=== PATIENT | female | born 1965 | race Caucasian/White ===

== ENCOUNTER 2020-02-13 20:54 | Emergency (ER) | payer MEDICARE, OTHER ==
[~2020-02-13] VITALS: Ht 152.4 cm; Wt 120.0 kg
[~2020-02-13 20:54] MED LIST: AMLO-150 PO; CLON-364 PO; HYDR-3246 PO; HYDR25TA6 PO; LEVO50TA5 PO; METO50TA82 PO; ONDA8TAB18 PO; PANT40TA3 PO; SUCR1ORA14 PO; TIZA2TAB4 PO
[2020-02-13 20:58] VITALS: BP 139/73
[2020-02-13] MEDS ORDERED: HYDROcodone/APAP 5/325 TABLET PO STA (21:10)
--- NOTE | 2020-02-13 21:20 | NUR ---
PROVIDER STATES TO HOLD PAIN MED UNTIL ETHENOL LAB RESULTS.
[2020-02-13 21:41] LABS: BASOPHILS % (AUTO) 1 % (0-1); EOSINOPHILS % (AUTO) 1 % (1-7); LYMPHOCYTES % (AUTO) 27 % (22-44); MEAN CORPUSCULAR HEMOGLOBIN 23.5 pg (27.0-34.8); MEAN CORPUSCULAR HGB CONC 30.7 g/dL (32.4-35.8); MEAN PLATELET VOLUME 8.1 fL (7.4-10.4); MONOCYTES % (AUTO) 7 % (2-9); NEUTROPHILS % (AUTO) 64 % (42-75); PLATELET COUNT 304 x10^3/uL (130-400); RED BLOOD COUNT 4.18 x10^6/uL (3.82-5.3); RED CELL DISTRIBUTION WIDTH 19.4 % (9.6-15.2)
[2020-02-13 21:45] LABS: MD NO
[2020-02-13 21:52] LABS: ALANINE AMINOTRANSFERASE 27 U/L (12-78); ALBUMIN 3.4 g/dL (3.4-5.0); ANION GAP 7 mmol/L (5-15); CALCIUM 8.3 mg/dL (8.5-10.1); CHLORIDE 110 mmol/L (98-107)
[2020-02-13 21:54] LABS: ALKALINE PHOSPHATASE 121 U/L (45-117); BILIRUBIN,TOTAL 0.4 mg/dL (0.2-1.0); TOTAL PROTEIN 7.2 g/dL (6.4-8.2)
--- NOTE | 2020-02-13 22:06 | NUR ---
PT AMBULATED TO RESTROOM WITH STEADY GAIT.
--- NOTE | 2020-02-13 22:08 | NUR ---
ALL RESULTS ARE BACK AT THIS TIME. CHART UP FOR RECHECK.
[2020-02-13] MEDS ORDERED: HYDROcodone/APAP 5/325 TABLET ONE (22:10)
--- NOTE | 2020-02-13 22:11 | NUR ---
PROVIDER OK TO GIVE [place]. 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
== END 2020-02-13 23:00 | disposition home or self-care (01) ==
LOC: ED 21:21
DX: S40.011A Contusion of right shoulder, initial encounter (principal); G31.2 Degeneration of nervous system due to alcohol; M25.561 Pain in right knee; F10.129 Alcohol abuse with intoxication, unspecified; I10 Essential (primary) hypertension; E11.9 Type 2 diabetes mellitus without complications; Z86.73 Personal history of transient ischemic attack (TIA), and cerebral infarction without residual deficits; Z72.9 Problem related to lifestyle, unspecified; Y90.9 Presence of alcohol in blood, level not specified; W01.0XXA Fall on same level from slipping, tripping and stumbling without subsequent striking against object, initial encounter; Y93.89 Activity, other specified; Y92.410 Unspecified street and highway as the place of occurrence of the external cause; Y99.8 Other external cause status
CPT/HCPCS: 36415; 71045; 80053; 80307; 85025; 99284

== ENCOUNTER 2020-06-14 16:26 | Emergency (ER) | payer MEDICAID, OTHER ==
[~2020-06-14] VITALS: Ht 152.4 cm; Wt 79.0 kg
[~2020-06-14 16:26] MED LIST changes: +ACID1TAB7 PO; +ALBU5SOL6 INH; +CARV6.2512 PO; +DULO30CA2 PO; +FERR-51 PO; -HYDR-3246 PO; +HYDR-3248 PO; +HYDR-3342 PO; +LIDO700A20 TD; +LISI-170 PO; +OXYB5TAB10 PO; +TIOT18CA INH; +TIZA-106 PO; -TIZA2TAB4 PO; +TRAZ-175 PO
--- NOTE | 2020-06-14 16:49 | NUR ---
Pt arrives via [facility] from [facility]. Pt thinks she is having detox/withdrawals from alcohol and oxycodone. Pt normally drinks 1/2 pint of alcohol per day. Last drink was 30hrs ago. Pt hx- withdrawal seizures, cardiac arrest, uterine cyst and complicated surgery on it that led to removal of right kidney, 3 strokes, 2 c-spine surgeries, cervical cancer, mouth cancer, gastric bypass. Pt tearful, anxious. Encouraging deep breathing. EKG done, seizure pads in place, pt hooked up to monitor, IV in place left AC.
[2020-06-14] MEDS ORDERED: CHLORDIAZEPOXIDE 25 MG CAPSULE ONE (16:55)
[2020-06-14] MEDS ORDERED: CHLORDIAZEPOXIDE 25 MG CAPSULE PO ONE (17:00)
[2020-06-14 17:50] LABS: BASOPHILS % (AUTO) 1 % (0-1); EOSINOPHILS % (AUTO) 0 % (1-7); LYMPHOCYTES % (AUTO) 37 % (22-44); MEAN CORPUSCULAR HEMOGLOBIN 21.6 pg (27.0-34.8); MEAN CORPUSCULAR HGB CONC 30.2 g/dL (32.4-35.8); MEAN PLATELET VOLUME 6.7 fL (7.4-10.4); MONOCYTES % (AUTO) 7 % (2-9); NEUTROPHILS % (AUTO) 55 % (42-75); PLATELET COUNT 340 x10^3/uL (130-400); RED BLOOD COUNT 4.76 x10^6/uL (3.82-5.3); RED CELL DISTRIBUTION WIDTH 26.4 % (9.6-15.2)
[2020-06-14 18:02] LABS: ALBUMIN 3.4 g/dL (3.4-5.0); ANION GAP 6 mmol/L (5-15); CALCIUM 8.3 mg/dL (8.5-10.1); CHLORIDE 105 mmol/L (98-107); CREATININE 2.19 mg/dL (0.55-1.02)
[2020-06-14 18:25] LABS: MD MORPH REVIEW ONLY
[2020-06-14 18:26] LABS: <PLATELET ESTIMATE> ADEQUATE; LARGE PLATELETS 1+
[2020-06-14 18:27] LABS: ANISOCYTOSIS 1+; HYPOCHROMIA 2+; MICROCYTOSIS 1+; OVALOCYTES 1+
[2020-06-14 18:52] LABS: MICROSCOPIC INDICATED
--- NOTE | 2020-06-14 18:58 | NUR ---
Report received from NACHO Guerrero. This RN to assume care.
[2020-06-14 19:53] VITALS: BP 150/75
--- NOTE | 2020-06-14 19:54 | NUR ---
Per Yolanda RN, [facility] contacted and are aware of patient coming to get ETOH detox assistance. Patient agreed to POC.
[2020-06-15] MEDS ORDERED: TIZA4TAB2 PO (18:53)
[2020-06-15] MEDS ORDERED: FERR324T18 PO (18:53)
[2020-06-15] MEDS ORDERED: MIRT-34 PO (18:53)
[2020-06-15] MEDS ORDERED: HYDR12.575 PO (18:53)
[2020-06-15] MEDS ORDERED: GABA-826 PO (18:53)
[2020-06-15] MEDS ORDERED: CLON0.1T2 PO (20:14)
[2020-06-15] MEDS ORDERED: CYCL5TAB PO (20:14)
== END 2020-06-14 20:05 | disposition home or self-care (01) ==
LOC: ED 19:50
DX: F10.139 Alcohol abuse with withdrawal, unspecified (principal); F19.139 Other psychoactive substance abuse with withdrawal, unspecified; R45.1 Restlessness and agitation; R11.0 Nausea; R94.31 Abnormal electrocardiogram [ECG] [EKG]; Y90.0 Blood alcohol level of less than 20 mg/100 ml
CPT/HCPCS: 36415; 80048; 81001; 82040; 85025; 87086; 93005; 99284